=== PATIENT | male | born 1955 | race Caucasian/White ===

== ENCOUNTER 2019-03-03 11:06 | Outpatient (CLI) | payer OTHER, SELFPAY ==
--- NOTE | ~2019-03-03 | XR_ITS ---
XR lumbar spine 2-3V 03/03/2019 11:39 Indication: Right hip pain and sciatica Procedure: 3 views of the lumbar spine Comparison: MRI dated 11/02/2016 Findings: There are multiple calcifications overlying the kidneys which may represent stones or vascu lar calcification. There is disc narrowing at L2-3, L3-4, L4-5 and L5-S1. There is mild-moderate mult ilevel facet hypertrophy. There is extensive atherosclerosis in sacral foramen are symmetric. There i s a stent in the right common iliac artery. There are cholecystectomy clips. Impression: 1: Moderate lumbar spondylosis. 2: Multiple calcifications overlying the kidneys which may represent stones or vascular calcification . Reviewed, dictated and finalized at location A. BREAKER Impression: 1: Moderate lumbar spondylosis. 2: Multiple calcifications overlying the kidneys which may represent stones or vascular calcification.
--- NOTE | ~2019-03-03 | XR_ITS ---
XR hip RT 2V w AP pelvis 03/03/2019 11:40 Indication: Right hip pain and sciatica Procedure: AP pelvis and 3 views right hip Comparison: 03/04/2016 Findings: Pelvic rings are intact. Sacral foramen are symmetric. Extensive vascular calcifications in the pelvis. No significant joint space narrowing. No erosive changes. No fracture or traumatic malal ignment. Impression: 1: No significant bone or joint abnormality. Reviewed, dictated and finalized at location A. OR FRONT END ENGINEER Impression: 1: No significant bone or joint abnormality.
== END 2019-03-03 11:07 | disposition home or self-care (01) ==
LOC: ANHIMG 11:14
PROVIDERS: PCP Family Medicine; Visit Provider Family Medicine
DX: M25.551 Pain in right hip (principal); M54.30 Sciatica, unspecified side; M47.896 Other spondylosis, lumbar region
CPT/HCPCS: 72100; 73502; 73521

== ENCOUNTER 2020-05-29 20:11 | Inpatient (IN) | payer OTHER, SELFPAY ==
--- NOTE | ~2020-05-29 | XR_ITS ---
EXAMINATION: XR chest 2V DATE: 05/29/2020 20:39 INDICATION: Midsternal chest pain TECHNIQUE: PA and lateral views of the chest are obtained. COMPARISON: 06/21/2017 FINDINGS: The lungs are free of acute opacities. There is no pleural effusion or pneumothorax. The ca rdiomediastinal silhouette is normal. There is moderate thoracic spondylosis. Surgical clips in the r ight upper quadrant are likely from prior cholecystectomy. IMPRESSION: 1. No acute cardiopulmonary abnormality. Reviewed, dictated and finalized at location A. ROLL MACHINE OFFBEARER
--- NOTE | 2020-05-29 20:14 | ECG_ITS ---
Measurements Intervals [place] Rate: 67 P: 71 WV: 155 QRS: 34 QRSD: 101 T: 68 QT: 372 QTc: 395 Interpretive Statements SINUS RHYTHM FREQUENT ATRIAL PREMATURE COMPLEXES BASELINE ARTIFACT- I, II, V1-V2 ABNORMAL ECG Electronically Signed On 05-30-2020 6:53:25 SURPLUS PROPERTY DISPOSAL AGENT by Florentin Stephens D.O.
[2020-05-29 20:15] VITALS: BP 188/75; PULSE 63; RESP 16; TEMP 36.6; O2SAT 95
[2020-05-29 20:31] LABS: Basophils Percent Auto 0.4 % (0.2-1.2); Eosinophils Absolute Auto 0.2 K/mm3 (0-0.3); Eosinophils Percent Auto 2.4 % (0-4.4); Hematocrit 41.2 % (42.0-52.0); Hemoglobin 13.4 g/dL (14.0-18.0); Immature Granulocyte Absolute 0.02 K/mm3 (0.00-0.031); Immature Granulocyte Percent A 0.2 % (0-0.5); Lymphocytes Absolute Auto 1.77 K/mm3 (0.9-3.2); Mean Corpuscular HGB Conc 32.5 g/dl (32-36); Mean Corpuscular Hemoglobin 29.1 pg (26-34); Mean Corpuscular Volume 89.6 fl (80-100); Mean Platelet Volume 11.4 fl (7.4-10.4); Monocytes Absolute Auto 0.6 K/mm3 (0.1-0.6); Monocytes Percent Auto 7.2 % (2.6-8.5); Neutrophils Absolute Auto 5.8 K/mm3 (1.3-6.7); Neutrophils Percent Auto 68.8 % (45.5-73.1); Platelet Count Result 172 k/mm3 (150-375); Red Cell Distribution Width 14.6 % (11.5-14.5); White Blood Count 8.4 K/mm3 (4.5-10.0)
[2020-05-29 20:42] LABS: INR 0.9; Partial Thromboplastin Time 33.6 SECONDS (22.3-36.8); Prothrombin Time 12.9 Seconds (11.1-14.7)
[2020-05-29 20:44] LABS: Anion Gap 7 mmol/L (8-16); Blood Urea Nitrogen 30 mg/dL (9-20); Calcium 9.4 mg/dL (8.4-10.2); Carbon Dioxide 32 mmol/L (22-30); Chloride 98 mmol/L (98-107); Estimated CRCL calculation 66 ml/min; Estimated Glomerular Filt Rate > 60; Glucose 144 mg/dL (75-110); Potassium 4.5 mmol/L (3.4-5.0); Sodium 137 mmol/L (137-145)
[2020-05-29 21:19] VITALS: BP 172/80; PULSE 64; RESP 18; TEMP 36.7; O2SAT 96
--- NOTE | 2020-05-29 21:31 | ED.CHESTPAIN ---
HPI - Chest Pain General Chief Complaint: Chest Pain Stated Complaint: CP Time Seen by Provider: 05/29/20 21:19 Source: patient Mode of arrival: ambulatory Limitations: no limitations History of Present Illness HPI narrative: Patient is a 64-year-old male complaining of chest pain, midsternal, tightness, 8 out of 10, radiating to his left arm that started 1 hour prior to arrival. Patient denies any shortness of breath, abdominal pain, nausea, vomiting, diaphoresis, fever or chills. Patient states that he has a stress test scheduled tomorrow morning at [facility]. Related Data Home Medications Medication Instructions Recorded Confirmed albuterol sulfate 2.5 mg INHALATION Q4H PRN 02/27/19 08/21/19 atorvastatin 80 mg tablet 80 mg PO DAILY 02/27/19 08/21/19 blood sugar diagnostic #10 each 02/27/19 08/21/19 clopidogrel 75 mg tablet 75 mg PO DAILY 02/27/19 08/21/19 coenzyme Q10 100 mg capsule 100 mg PO DAILY 02/27/19 08/21/19 cyanocobalamin (vitamin B-12) 1,000 mcg PO DAILY 02/27/19 08/21/19 1,000 mcg capsule ferrous sulfate 325 mg (65 mg 325 mg PO DAILY 02/27/19 08/21/19 iron) tablet fluticasone propionate 50 2 spray NASAL DAILY 02/27/19 08/21/19 mcg/actuation nasal spray,suspension levothyroxine 200 mcg tablet 200 mcg PO DAILY 02/27/19 08/21/19 levothyroxine 25 mcg tablet 25 mcg PO DAILY 02/27/19 08/21/19 magnesium oxide 400 mg (241.3 mg 400 mg PO DAILY 02/27/19 08/21/19 magnesium) tablet metformin 1,000 mg tablet 1,000 mg PO BID 02/27/19 08/21/19 metoprolol tartrate 50 mg tablet 50 mg PO DAILY 02/27/19 08/21/19 pantoprazole 40 mg tablet,delayed 40 mg PO QAM 02/27/19 08/21/19 release pregabalin 50 mg capsule 50 mg PO DAILY cap 02/27/19 08/21/19 sertraline 100 mg tablet 100 mg PO DAILY 02/27/19 08/21/19 sitagliptin 100 mg tablet 100 mg PO DAILY 02/27/19 08/21/19 testosterone 1 % (50 mg/5 gram) 1 packet TRANSDERM DAILY 02/27/19 08/21/19 transdermal gel packet triamcinolone acetonide 0.1 % 1 applic TOPICAL BID 02/27/19 08/21/19 topical cream vitamin B complex 1 tablet PO DAILY 02/27/19 08/21/19 glycopyrrolate 9 mcg-formoterol 2 puff INHALATION BID 08/21/19 08/21/19 4.8 mcg HFA aerosol inhaler Allergies Allergy/AdvReac Type Severity Reaction Status Date / Time Iodinated Contrast Media Allergy Unknown Rash Verified 05/29/20 20:21 iodine Allergy Unknown Rash Verified 05/29/20 20:21 Penicillins Allergy Unknown Rash Verified 05/29/20 20:21 Review of Systems Review of Systems: All systems reviewed & are unremarkable except as noted in HPI and below Constitutional: Constitutional: Denies body ache(s), Denies chills, Denies excessive sweating, Denies fatigue, Denies fever(s), Denies headache(s), Denies lethargy, Denies malaise, Denies weakness and Denies weight loss Eyes: Eyes: Denies blurry vision, Denies change in vision and Denies loss of vision ENT: Denies dizziness, Denies ear discharge, Denies headache(s), Denies lip swelling, Denies epistaxis, Denies nasal congestion, Denies neck pain, Denies throat swelling and Denies tongue swelling Cardiovascular: Cardiovascular: Denies diaphoresis, Denies rapid heart rate, Denies edema, Denies irregular heart rhythm, Denies lightheadedness, Denies palpitations, Denies dyspnea and Denies dyspnea on exertion Respiratory: Respiratory: Denies chest congestion, Denies cough, Denies hemoptysis, Denies dyspnea and Denies dyspnea on exertion Gastrointestinal: Gastrointestinal: Denies abdominal pain, Denies melena, Denies hematochezia, Denies diarrhea, Denies nausea, Denies vomiting and Denies hematemesis Musculoskeletal: Musculoskeletal: Denies abnormal gait, Denies deformity, Denies joint swelling, Denies limited range of motion, Denies neck pain and Denies numbness Neurologic: Denies Abnormal speech present, Denies abnormal gait, Denies confusion, Denies dizziness, Denies headache(s), Denies focal weakness, Denies loss of vision, Denies numbness, Denies Other visual disturbances, Bin
[2020-05-29] MEDS: ASPIRIN 81 MG CHEWABLE TABLET 324 MG PO (21:35)
[2020-05-29] MEDS: NITROGLYCERIN SL 0.4 MG TABLET (22:11)
[2020-05-29] MEDS: ENOXAPARIN 100 MG/ML SYRINGE SUB-Q (22:22)
--- NOTE | 2020-05-29 22:23 | PC.NURSE ---
chest pain relieved with one nitro
[2020-05-29 22:25] VITALS: BP 126/73; PULSE 76; RESP 18; O2SAT 99
[2020-05-29 23:26] VITALS: O2SAT 94
[2020-05-29 23:30] VITALS: BP 139/72; PULSE 67; RESP 18; TEMP 36.6; O2SAT 94; BMI 32.3
[2020-05-29 23:31] VITALS: BMI 32.3
--- NOTE | 2020-05-29 23:48 | ADMGEN ---
This patient, Tutu Greer, was admitted to IMU Room 203-01 at 2331 from the Emergency department. Patient/family oriented to hospital policies and general routines including ID bracelet, bed and alarms, visiting hours, pain management, procedures, bathroom and other care routines, personal items, smoking policy, room service/diet, and visiting hours. Information on how to activate the Rapid Response Team has been discussed. Patient/Family are encouraged to report perceived risks to care and to ask questions if they do not understand what they are told or what they should do.
[2020-05-30] VITALS (21 sets, daily range): BP systolic 115–167; BP diastolic 41–91; PULSE 62–92; RESP 14–24; TEMP 36.3–36.6; O2SAT 91–94
[2020-05-30] MEDS: LACTATED RINGERS 1,000 ML 125 ML IV CONT ×2 (02:44→10:51)
[2020-05-30] MEDS: LEVOTHYROXINE SODIUM 100 MCG TABLET 200 MCG PO (06:09)
--- NOTE | 2020-05-30 08:00 | ECG_ITS ---
Measurements Intervals [place] Rate: 68 P: 54 MD: 160 QRS: 7 QRSD: 112 T: 52 QT: 425 QTc: 455 Interpretive Statements SINUS RHYTHM ATRIAL PREMATURE COMPLEXES INTRAVENTRICULAR CONDUCTION DELAY DELAYED PRECORDIAL R/S TRANSITION T WAVE ABNORMALITY IN ANTERIOR LEADS- CONSIDER ISCHEMIA BASELINE ARTIFACT- I, III ABNORMAL ECG Electronically Signed On 05-30-2020 9:16:09 SHOE PLANNER by Florentin Stephens D.O.
[2020-05-30] MEDS: ROSUVASTATIN 10 MG TABLET 40 MG PO (08:11)
[2020-05-30] MEDS: ASPIRIN 81 MG CHEWABLE TABLET PO (08:11)
[2020-05-30] MEDS: METOPROLOL TARTRATE 50 MG TAB PO (08:12)
[2020-05-30] MEDS: lisinopriL 20 MG TABLET PO (08:12)
[2020-05-30] MEDS: CLOPIDOGREL BISULFATE 75 MG TABLET PO (08:12)
[2020-05-30] MEDS: FLUTICASONE PROPIONATE 0.05% NA SPR 16 GM BTL (*BKC) 2 SPRAY NASAL (08:13)
[2020-05-30] MEDS: FERROUS SULFATE 324 MG TABLET PO (08:13)
[2020-05-30] MEDS: SERTRALINE HCL 50 MG TABLET 100 MG PO (08:13)
[2020-05-30] MEDS: PANTOPRAZOLE 40 MG TABLET PO (08:13)
[2020-05-30] MEDS: CYANOCOBALAMIN 1,000 MCG TABLET 1000 MCG PO (08:13)
[2020-05-30] MEDS: methylPREDNISolone SOD SUCC 125 MG VIAL IV PUSH (10:52)
--- NOTE | 2020-05-30 11:21 | PM.IMHP ---
H&P: HPI History of Present Illness Date/Time: 05/30/20 11:21 Chief Complaint: Chest pain Narrative: Tutu Greer is a 64 year old male who was admitted to our service last night after being seen in the emergency room with chest pain. The patient is unknown to me prior to this visit this morning. He is known to have significant vascular disease in the lower extremities as well as in the carotids. He also was known to have coronary artery disease which has been treated medically. The patient states that he was in his usual state of health when last evening he started to notice some chest pain with which is a dull retrosternal heavy like sensation radiating into the left shoulder and into the left arm. The discomfort of course caused him to be concerned and he very quickly informed his about it and was brought to the emergency room for evaluation. In the emergency department his electrocardiogram looked benign. He had a negative troponin sample he was given aspirin and nitrates and a Lovenox injection after which his pain resolved. He has been up in IMU since then and he has serial troponin levels which have become clearly abnormal with a troponin I believe up to about 13 his electrocardiogram in follow-up does show precordial ST and T-wave abnormalities it appears the patient therefore has had an anterior non ST elevation AL. He is comfortable at this time and denies any complaints. He states he is known to have arterial disease in both lower extremities and has had percutaneous revascularization at [facility] a number of years ago. Prior to that procedure he states he had a cardiac angiogram at [facility] at which she was told of modest disease which is being treated medically. 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 He does report the history of an allergy to IV contrast which has resulted in a rash in the past. Review of Systems Constitutional: Constitutional: Reports no additional constitutional complaints Eyes: Eyes: Reports no additional eye complaints ENT: Reports system reviewed and no additional complaints, except as documented Cardiovascular: Cardiovascular: Reports as per HPI Respiratory: Respiratory: Reports no additional respiratory complaints Gastrointestinal: Gastrointestinal: Reports no additional gastrointestinal complaints Musculoskeletal: Musculoskeletal: Reports no additional musculoskeletal complaints Integumentary/Breasts: Skin/Breast: Reports system reviewed and no additional complaints, except as docu Neurologic: Reports system reviewed and no additional complaints, except as documented [facility] Past Medical History Medical History Anemia Anxiety Arthritis CAD (coronary artery disease) Cataract COPD (chronic obstructive pulmonary disease) Depression Diabetes Diverticulitis HTN (hypertension) Hyperlipidemia Hypothyroidism Left carotid artery occlusion Lung cancer PVD (peripheral vascular disease) Sleep apnea Spinal stenosis Surgical History Surgical History H/O carotid endarterectomy History of bowel resection History of cardiac cath Hx laparoscopic cholecystectomy Family History Family History Father Family history of malignant neoplasm Family history of lung cancer Patient's father is Mother Hypertension Diabetes mellitus Family history of arthritis Sibling Patient's brother is in good health Other Family history of allergic disorder Social History Social History Smoking packs per day: 1 Smoking cigarettes per day: 20.0 Years smoked: 39 Smoking pack-years: 39.00 Smok
--- NOTE | 2020-05-30 13:08 | WPDMODSED ---
Moderate Sedation Note-Pt Data Patient Data Diagnosis: Acute coronary syndrome / non ST elevation [place] Present Complaint: chest pain Procedure to be performed/Plan: left heart catheterization Allergies Allergy/AdvReac Type Severity Reaction Status Date / Time Iodinated Contrast Media Allergy Unknown Rash Verified 05/29/20 20:21 iodine Allergy Unknown Rash Verified 05/29/20 20:21 Penicillins Allergy Unknown Rash Verified 05/29/20 20:21 shellfish derived Allergy Rash Verified 05/30/20 00:50 Home Medications Medication Instructions Recorded Confirmed Type blood sugar diagnostic #10 each 02/27/19 05/30/20 History clopidogrel 75 mg tablet 75 mg PO DAILY 02/27/19 05/30/20 History cyanocobalamin (vitamin B-12) 1,000 mcg PO DAILY 02/27/19 05/30/20 History 1,000 mcg capsule ferrous sulfate 325 mg (65 mg 325 mg PO DAILY 02/27/19 05/30/20 History iron) tablet fluticasone propionate 50 2 spray NASAL DAILY 02/27/19 05/30/20 History mcg/actuation nasal spray,suspension levothyroxine 200 mcg tablet 200 mcg PO DAILY 02/27/19 05/30/20 History metformin 1,000 mg tablet 1,000 mg PO BID 02/27/19 05/30/20 History metoprolol tartrate 50 mg tablet 50 mg PO DAILY 02/27/19 05/30/20 History pantoprazole 40 mg tablet,delayed 40 mg PO QAM 02/27/19 05/30/20 History release sertraline 100 mg tablet 100 mg PO DAILY 02/27/19 05/30/20 History testosterone 1 % (50 mg/5 gram) 1 packet TRANSDERM DAILY 02/27/19 05/30/20 History transdermal gel packet vitamin B complex 1 tablet PO DAILY 02/27/19 05/30/20 History lisinopril 20 1 tablet PO DAILY #90 tablet 03/05/19 05/30/20 Rx mg-hydrochlorothiazide 25 mg tablet Current Medications: Active Medications Aspirin (Aspirin 81 Mg Chewable Tablet) 81 mg PO DAILY@0800 [facility] Last Admin: 05/30/20 08:11 Dose: 81 mg Documented by: Clopidogrel Bisulfate (Clopidogrel Bisulfate 75 Mg Tablet) 75 mg PO DAILY [facility] Last Admin: 05/30/20 08:12 Dose: 75 mg Documented by: Cyanocobalamin (Cyanocobalamin 1,000 Mcg Tablet) 1,000 mcg PO DAILY [facility] Last Admin: 05/30/20 08:13 Dose: 1,000 mcg Documented by: Ferrous Sulfate (Ferrous Sulfate 324 Mg Tablet) 324 mg PO DAILY@0800 [facility] Last Admin: 05/30/20 08:13 Dose: 324 mg Documented by: Fluticasone Propionate (Fluticasone Propionate 0.05% Na Spr 16 Gm Btl (*Bkc)) 2 spray NASAL DAILY [facility] Last Admin: 05/30/20 08:13 Dose: 2 spray Documented by: Hydrochlorothiazide (Hydrochlorothiazide 25 Mg Tablet) [facility] Admin: 05/30/20 11:29 Dose: Not Given Documented by: Lactated Ringer's (Lr - Lactated Ringers Iv) 1,000 mls @ 125 mls/hr IV CONT .Q8H [facility] Last Admin: 05/30/20 10:51 Dose: 125 mls/hr Documented by: Levothyroxine Sodium (Levothyroxine Sodium 100 Mcg Tablet) 200 mcg PO DAILY@0630 [facility] Last Admin: 05/30/20 06:09 Dose: 200 mcg Documented by: Lisinopril (Lisinopril 20 Mg Tablet) [facility] [place] Admin: 05/30/20 08:12 Dose: 20 mg Documented by: Metoprolol Tartrate (Metoprolol Tartrate 50 Mg Tab) 50 mg PO DAILY [facility] Last Admin: 05/30/20 08:12 Dose: 50 mg Documented by: Pantoprazole Sodium (Pantoprazole 40 Mg Tablet) [address] [facility] Last Admin: 05/30/20 08:13 Dose: 40 mg Documented by: Rosuvastatin Calcium (Rosuvastatin 10 Mg Tablet) 40 mg PO DAILY@0800 [facility] Last Admin: 05/30/20 08:11 Dose: 40 mg Documented by: Sertraline HCl (Sertraline Hcl 50 Mg Tablet) 100 mg PO DAILY [facility] Last Admin: 05/30/20 08:13 Dose: 100 mg Documented by: Sedation/Anesthesia: No previous sedation/anesthesia problems (including family history). [facility] Past Medical History Medical History Anemia Anxiety Arthritis CAD (coronary artery disease) Cataract COPD (chronic obstructive pulmonary disease) Depression Diabetes Diverticulitis HTN (hypertension) Hyperlipidemia Hypothyroidism Left carotid artery occlusion Lung cancer PVD (peripheral vascular disease) Sleep office clerk routine
--- NOTE | 2020-05-30 14:06 | WPDCARDPROC ---
Cardiac Cath Procedure Note Date of procedure:: 05/30/20 Performing physician:: Quinn Machuca MD Indication:: acute coronary syndrome / non ST elevation MT Brief clinical history:: this is a 64-year-old man with known diffuse peripheral vascular disease but angiographically mild coronary disease in the past. He presented with an episode of ischemic chest pain, ECG the following changes of anterior non Q MT and significant troponin rise. Procedure Procedure performed:: Left ventriculography coronary angiography Sedation/Medication given:: fentanyl 50 mg Versed 2 mg case start time 1:30 p.m. case end time 2:00 p.m. sedation provided by Alanna Peters RN, trained observer Access site:: right femoral artery Estimated blood loss:: 20 cc Procedure note:: patient was brought to the cardiac catheterization lab in the postabsorptive state. Under fluoroscopic visualization I did not see any visible stent material in the right femoral artery. There was stent material higher up in the iliac vessel. The femoral artery was have however heavily calcified. 1% lidocaine was infiltrated in the femoral triangle and using the modified Seldinger technique the vessel was punctured and I used a Josesito wire to traverse the diseased femoral and iliac vessels into the central aorta. I then advanced a 5 Tajik vascular sheath which was used for vascular access. Initially I used a 5 Tajik angled pigtail catheter over the wooly wire advanced into the left ventricle to assess left-sided hemodynamics and left ventriculogram was injected in the MYERS projection. After this the pigtail catheter was changed over the standard 0.035 J-wire for a JR4 catheter. I was unable to engage the right coronary artery successfully with this vessel or with the no Torque catheter. I then used the 5 Tajik FL4 catheter to engage and inject the left coronary artery in multiple projections. After this I attempted once again to engage and inject the right coronary artery using a 5 Tajik AR modified catheter. Following this the cineangiograms were reviewed and the case was terminated. The patient was taken to the holding area for manual sheath removal. Procedure was well tolerated there were no apparent complications. He left the laborer rags with no evidence of a groin hematoma. Findings:: Hemodynamics: Central aortic pressure is 124 over 60 left ventricle 1 28 over to end-diastolic pressure of 10. No significant gradient was noted across the aortic valve on pullback. Left ventricle: The LV appears to be normal in size the mid anterior wall to apical anterior segment is significantly hypodynamic but not akinetic the ejection fraction is visually estimated to be 40-45%. The left main coronary artery is moderate to large in caliber and is calcified. There is about 70% stenosis in the distal aspect of the left main. The left anterior descending is a large to moderate caliber artery extending down to around the apex. The ostium of the LAD has mild stenosis extending from the left main disease described above. In the proximal half of the LAD there is heavy diffuse calcification with [id number] lesions but no high-grade stenosis. There is about 80% stenosis in the midportion of the LAD distal to all of this heavy calcification. Circumflex is a large caliber vessel which appears to be dominant to the posterior circulation. The circumflex has a high-grade proximal stenosis of 99%. There appears to be a large proximal OM branch prior to this lesion at that vessel does not appear to be significantly disease. In another view there appears to be a 2nd bifurcating OM branch that is occluded and collateralized. The distal circumflex trunk prior to the left PDA has diffuse 80-90% stenosis. Conclusion:: 1. Severe coronary artery disease with what appears to be left dominant circulation and significant disease in the distal left main, subtotal stenosis of large proximal c
[2020-05-30] MEDS: SODIUM CHLORIDE 0.9% IV 1,000 ML 125 ML IV CONT (17:42)
[2020-05-30] MEDS: ACETAMINOPHEN 325 MG TABLET 650 MG PO (17:43)
[2020-05-31] VITALS: BP 143/73; PULSE 71; PULSE 75; RESP 16; TEMP 36.2; O2SAT 93
[2020-05-31 02:00] VITALS: PULSE 73
[2020-05-31 04:00] VITALS: BP 134/71; PULSE 65; PULSE 85; RESP 16; TEMP 36.2; O2SAT 93
[2020-05-31 05:00] VITALS: PULSE 78
--- NOTE | 2020-05-31 05:09 | PC.NURSE ---
0500- Report given to Anisha METCALF. Patient will be transferred [place] [id number]. Patient aware and agreeable for transfer. Belongings confirmed and with patient.
--- NOTE | 2020-06-23 15:48 | PM.DS ---
DS: Admitting Diagnosis Admitting Diagnosis Admitting Diagnosis: Acute coronary syndrome DS: Discharge Diagnosis Discharge Diagnosis (1) Non-ST elevation (NSTEMI) myocardial infarction: Code(s): I21.4 - Non-ST elevation (NSTEMI) myocardial infarction Status: Acute DS: Summary Hospital Course Reason for hospitalization: Chest pain, acute coronary syndrome Hospital Course: This is a 64-year-old man without any previous history of significant coronary disease but with a known history of severe peripheral vascular disease. He entered the hospital with ischemic chest pain in accelerating fashion and was seen in the emergency department. Following admission there was a moderate rise in his troponin level prompting recommendation to perform an angiogram. The patient was brought to the cardiac catheterization lab and was found to have severe multivessel coronary disease. The right coronary artery appears to have been a small non dominant vessel which is totally occluded. The patient was found to have high-grade stenosis in the distal left main coronary artery, proximal and mid LAD and ostial circumflex. An occluded marginal branch was also identified. Left ventricular function was moderately depressed ejection fraction was about 40%. With this anatomy surgical myocardial revascularization was recommended. As coronary bypass surgery is not available at [facility] he was transferred to [facility] in [place] for cardiothoracic surgery consultation and ultimately for revascularization. Status at Discharge Functional status at discharge: bed bound Overall status at discharge: patient is not back to baseline Time Spent with Patient Time attestation: Total time spent providing and/or coordinating discharge services: Time spent: Greater than 30 minutes Exam Const: General: comfortable and no acute distress Other: Well-developed well-nourished white male no distress having intermittent chest pain at the time of admission HENMT: Mouth: Yes moist mucous membranes Eyes: Sclera: sclerae normal Pupils: Equal, round and reactive pupils present Neck: Neck: supple and no JVD Other: No carotid bruits are audible Resp: Effort & Inspection: normal respiratory effort Auscultation: diminished lung sounds Cardio: Rate: regular rate Rhythm: regular rhythm Other: PMI difficult to palpate S4 is noted no murmur GI: GI Palp: Yes Soft to palpation Auscultation: normal bowel sounds Skin: General skin exam: normal color Neuro: Other: Normal mentation/cognition Extrem: Other: No pitting edema pulses are diminished below the femoral triangles bilaterally Discharge Plan Discharge Attending physician on discharge: Quinn Machuca Consulting providers: Dante Ramos ; Florentin Stephens Discharging Clinician: Quinn Machuca Anticipated Discharge Date/Time: 05/30/20 15:52 Patient Disposition: Acute Care Hospital Activity: other - see discharge instructions Diet: NPO Patient Instructions: Electronic Cigarettes and Your Health (GEN) Discharge Medications: Continued fluticasone propionate 50 mcg/actuation spray,suspension 2 spray NASAL DAILY RF: 0 pantoprazole [Protonix] 40 mg tablet,delayed release (DR/EC) 40 mg PO QAM RF: 0 ferrous sulfate [FeroSul] 325 mg (65 mg iron) tablet 325 mg PO DAILY RF: 0 testosterone [AndroGel] 1 % (50 mg/5 gram) gel in packet 1 packet TRANSDERM DAILY RF: 0 sertraline [Zoloft] 100 mg tablet 100 mg PO DAILY RF: 0 levothyroxine 200 mcg tablet 200 mcg PO DAILY RF: 0 metoprolol tartrate 50 mg tablet 50 mg PO DAILY RF: 0 cyanocobalamin (vitamin B-12) 1,000 mcg capsule 1,000 mcg PO DAILY RF: 0 lisinopril-hydrochlorothiazide 20-25 mg tablet 1 tablet PO DAILY Qty: 90 RF: 1 Discontinued vitamin B complex Tablet 1 tablet PO DAILY RF: 0 (DME) OneTouch Ultra Blue Test Strip Strip See Rx Instructions .ROUTE .MED
== END 2020-05-31 05:00 | disposition short-term general hospital (02) | DRG 282 ==
LOC: ANHED 22:37 → ANHIMU 23:30
PROVIDERS: Emergency Medicine; Admitting Provider Internal Medicine Cardiovascular Disease; Emergency Provider Emergency Medicine; PCP Student in an Organized Health Care Education/Training Program; Visit Provider Specialist
PROC: 4A023N7 Measurement of Cardiac Sampling and Pressure, Left Heart, Percutaneous Approach (ICD-10-PCS; CPT 93452; principal; 2020-05-30 13:00)
DX: I21.4 Non-ST elevation (NSTEMI) myocardial infarction (principal); I25.10 Atherosclerotic heart disease of native coronary artery without angina pectoris; D64.9 Anemia, unspecified; F41.8 Other specified anxiety disorders; M19.90 Unspecified osteoarthritis, unspecified site; J44.9 Chronic obstructive pulmonary disease, unspecified; E78.5 Hyperlipidemia, unspecified; G47.30 Sleep apnea, unspecified; I73.9 Peripheral vascular disease, unspecified; E11.51 Type 2 diabetes mellitus with diabetic peripheral angiopathy without gangrene; E03.9 Hypothyroidism, unspecified; I10 Essential (primary) hypertension; M48.00 Spinal stenosis, site unspecified; Z87.891 Personal history of nicotine dependence; Z90.49 Acquired absence of other specified parts of digestive tract; Z85.118 Personal history of other malignant neoplasm of bronchus and lung
CPT/HCPCS: 36415; 71046; 80048; 84484; 85025; 85610; 85730; 93005; 93458; 96360; 96361; 96372; 99291; A9270; C1769; C1887; C1894; G0378; J1644; J1650; J2250; J2930; J3010; J7030; J7040; J7120

== ENCOUNTER 2022-04-24 11:11 | Inpatient (IN) | payer OTHER, SELFPAY ==
[2022-04-24] VITALS (20 sets, daily range): BP systolic 96–197; BP diastolic 54–92; PULSE 62–128; RESP 18–39; TEMP 36.6–37.7; O2SAT 85–99; BMI 31.5
--- NOTE | ~2022-04-24 | XR_ITS ---
EXAMINATION: XR chest 1V portable INDICATION: Shortness of breath TECHNIQUE: Portable AP chest at 0909 hours COMPARISON: 04/24/2022 FINDINGS: There are persistent airspace opacities of the right upper lobe. Airspace opacities have de veloped in the left lung base. No pleural effusion or pneumothorax. Median sternotomy wires and media stinal surgical clips are seen, likely from prior coronary artery bypass grafting. The cardiomediasti nal silhouette is normal. Surgical clips are noted in the left neck. IMPRESSION: 1. Persistent right upper lobe airspace opacities, consistent with pneumonia. 2. Minimal left basilar airspace opacities, consistent with atelectasis versus pneumonia. Reviewed, dictated and finalized at location B. [employer]OR[employer] UNITS SUPERVISOR
--- NOTE | ~2022-04-24 | XR_ITS ---
XR chest 1V portable 04/24/2022 11:39 Indication: Cough and shortness of breath. COPD. Procedure: AP portable chest Comparison: Comparison to multiple prior studies sequentially, with oldest reviewed study dated 04/08. Findings: Status post median sternotomy for CABG. Heart size normal. Bibasilar airspace disease. No s ignificant effusion or pneumothorax. No acute osseous abnormality. Impression: 1: Bibasilar airspace disease may represent pneumonia or edema. Reviewed, dictated and finalized at location A. [employer]OR COFFEE Impression: 1: Bibasilar airspace disease may represent pneumonia or edema.
--- NOTE | ~2022-04-24 | CT_ITS ---
EXAMINATION:CT diagnostic chest wo con DATE: 04/24/2022 14:25 INDICATION: Dyspnea. TECHNIQUE: Computed tomography (CT) of the chest was performed without intravenous contrast. Automate d exposure control and iterative reconstruction technique were employed. The dose-length product (DLP ) was 390.10 mGy-cm. COMPARISON: Chest CT 03/18/2017, 04/08/17 FINDINGS: There is mild emphysema. There are changes of wedge resection in right lung lower lobe. The re are airspace opacities with air bronchograms in anterior segment right upper lobe. There is mild a telectasis bilaterally. No pleural effusion. The heart size is normal. There are coronary artery calc ifications. There are changes of coronary artery bypass grafting. No pericardial effusion. There are changes of cholecystectomy. There is mild chronic anterior wedging of multiple vertebral bodies. Ther e is mild thoracic spondylosis. IMPRESSION: 1. Pneumonia involving anterior segment right upper lobe. 2. Mild emphysema. Reviewed, dictated and finalized at location A. [employer] EVALUATION OFFICER
--- NOTE | 2022-04-24 11:23 | ECG_ITS ---
Measurements Intervals [place] Rate: 112 P: 31 [place]: 167 QRS: -78 QRSD: 134 T: 62 QT: 286 QTc: 391 Interpretive Statements SINUS TACHYCARDIA LEFT AXIS DEVIATION RIGHT BUNDLE BRANCH BLOCK INFERIOR INFARCT, AGE INDETERMINATE ABNORMAL ECG COMPARED TO ECG 05/30/2020 09:14:06 SINUS TACHYCARDIA NOW PRESENT RIGHT BUNDLE-BRANCH BLOCK NOW PRESENT INFERIOR INFARCT NOW PRESENT Electronically Signed On 04-24-2022 13:20:21 FRAME EXPANDER by Florentin Stephens D.O.
--- NOTE | 2022-04-24 11:29 | ED.GENADULT ---
HPI - General Adult General Chief complaint: Upper Respiratory Infection Stated complaint: flu like symptoms x days, flor/n/v/dizzy/weakness Time Seen by Provider: 04/24/22 11:15 Source: family and RN notes reviewed History of Present Illness HPI narrative: Patient presents emergency department from home for generalized weakness. Patient states has been feeling ill for the past 4 days states has had a cough this been nonproductive as well as subjective fever weakness and nausea he denies any chest pain states he has been feeling short of breath with the cough he denies any vomiting or diarrhea states he last took Tylenol between 6 and 7 AM this morning . On EMS arrival patient was noted to be hypoxic in the mid 80s and placed on 2 L nasal cannula per the patient's the patient had a temperature of 100.7 this morning Related Data Home Medications Medication Instructions Recorded Confirmed fluticasone propionate 50 2 spray intranasal DAILY 02/27/19 04/24/22 mcg/actuation nasal spray,suspension metoprolol tartrate 50 mg tablet 50 mg PO DAILY 02/27/19 04/24/22 sertraline 100 mg tablet (Zoloft) 100 mg PO DAILY 02/27/19 04/24/22 acetaminophen 325 mg capsule 325 mg PO Q6H PRN pain 02/17/22 04/24/22 albuterol sulfate 2.5 mg/3 mL 2.5 mg inhalation Q4-6H PRN Pain 02/17/22 04/24/22 (0.083 %) solution for nebulization albuterol sulfate 90 mcg/actuation 1 puff inhalation Q4H PRN 02/17/22 04/24/22 aerosol inhaler Shortness Of Breath amlodipine 5 mg tablet 5 mg PO DAILY 02/17/22 04/24/22 clopidogrel 75 mg tablet 75 mg PO DAILY 02/17/22 04/24/22 fluticasone 250 mcg-salmeterol 50 1 inh inhalation BID 02/17/22 04/24/22 mcg/dose blistr powdr for inhalation (Raffaele Inhub) levothyroxine 175 mcg capsule 175 mcg PO DAILY 02/17/22 04/24/22 lisinopril 40 mg tablet 40 mg PO DAILY 02/17/22 04/24/22 furosemide 20 mg tablet 20 mg PO DAILY PRN edema 04/24/22 04/24/22 Allergies Allergy/AdvReac Type Severity Reaction Status Date / Time Iodinated Contrast Media Allergy Unknown Rash Verified 02/17/22 10:41 iodine Allergy Unknown Rash Verified 02/17/22 10:41 Penicillins Allergy Unknown Rash Verified 02/17/22 10:41 shellfish derived Allergy Rash Verified 02/17/22 10:41 Review of Systems Review of Systems: Gen.: Reports subjective fevers denies chills ENT: Denies congestion Respiratory: See HPI CV: Denies chest pain or palpitations GI: Denies abdominal pain emesis or diarrhea reports nausea Musculoskeletal: Denies back pain or muscle pain Neuro: Reports weakness Skin: Denies rash Except as documented, all other systems reviewed and negative [facility] Past Medical History Medical History (Updated 04/24/22 @ 15:46 by David Velazquez DO) Anemia Anxiety Arthritis Atherosclerotic heart disease of [place] coronary artery with other forms of angina pectoris CAD (coronary artery disease) Cataract Cerebrovascular disease COPD (chronic obstructive pulmonary disease) Depression Diabetes Diverticulitis Enlarged prostate without lower urinary tract symptoms (luts) Gastro-esophageal reflux disease without esophagitis HTN (hypertension) Hyperlipidemia Hypothyroidism Left carotid artery occlusion Lumbar radiculopathy Lung cancer Non-small cell cancer of right lung Non-ST elevation (NSTEMI) myocardial infarction Other vitamin B12 deficiency anemias PVD (peripheral vascular disease) Sciatica Sciatica Sleep apnea Spinal stenosis Testosterone deficiency Surgical History Surgical History H/O carotid endarterectomy History of bowel resection History of cardiac cath Hx laparoscopic cholecystectomy Family History Family History Father Family history of malignant neoplasm Family history of lung cancer Patient's father is Mother Hypertension Diabetes mellitus Family history of arthritis Sibling Patient's
[2022-04-24 11:42] LABS: Basophils Percent Auto 0.2 % (0.2-1.2); Eosinophils Absolute Auto 0.1 K/mm3 (0-0.3); Eosinophils Percent Auto 0.5 % (0-4.4); Hematocrit 46.7 % (42.0-52.0); Immature Granulocyte Absolute 0.05 K/mm3 (0.00-0.031); Immature Granulocyte Percent A 0.4 % (0-0.5); Lymphocytes Absolute Auto 1.01 K/mm3 (0.9-3.2); Lymphocytes Percent Auto 8.4 % (18.3-44.2); Mean Corpuscular HGB Conc 32.1 g/dl (32-36); Mean Corpuscular Hemoglobin 29.6 pg (26-34); Mean Corpuscular Volume 92.3 fl (80-100); Mean Platelet Volume 11.8 fl (7.4-10.4); Monocytes Absolute Auto 0.7 K/mm3 (0.1-0.6); Monocytes Percent Auto 5.6 % (2.6-8.5); Neutrophils Absolute Auto 10.2 K/mm3 (1.3-6.7); Neutrophils Percent Auto 84.9 % (45.5-73.1); Platelet Count Result 166 k/mm3 (150-375); Red Blood Count 5.06 M/mm3 (4.6-6.20); Red Cell Distribution Width 14.2 % (11.5-14.5)
[2022-04-24 11:53] LABS: Alanine Aminotransferase 28 U/L (6-50); Albumin Level 4.5 g/dL (3.5-5.1); Alkaline Phosphatase 109 U/L (38-126); Anion Gap 9 mmol/L (8-16); Aspartate Amino Transferase 39 U/L (17-59); Bilirubin,Total 0.8 mg/dL (0.2-1.3); Blood Urea Nitrogen 20 mg/dL (9-20); Calcium 9.2 mg/dL (8.4-10.2); Carbon Dioxide 32 mmol/L (22-30); Chloride 98 mmol/L (98-107); Estimated Glomerular Filt Rate > 60; Glucose 174 mg/dL (65-110); Potassium 4.3 mmol/L (3.4-5.0); Sodium 139 mmol/L (137-145)
[2022-04-24 11:54] LABS: INR 1.1; Prothrombin Time 13.3 Seconds (11.1-14.7)
[2022-04-24 11:55] LABS: Partial Thromboplastin Time 31.5 SECONDS (22.3-36.8)
[2022-04-24 12:05] LABS: NT Pro B Type Natriuretic Pept 1330 pg/mL (19.9-100); Troponin I < 0.012 ng/mL (0.000-0.034)
[2022-04-24 12:07] LABS: Lactic Acid Reflex 1.8 mmol/L (0.7-2.0)
[2022-04-24 12:17] LABS: Influenza A QL RT-PCR Negative (Negative); Influenza B QL RT-PCR Negative (Negative); RSV RNA, RT-PCR Negative (Negative); SARS-CoV-2 RNA PCR Negative
[2022-04-24] MEDS: FAMOTIDINE 20 MG/2 ML VIAL IV PUSH (13:21)
[2022-04-24] MEDS: IBUPROFEN 600 MG TABLET PO (13:21)
[2022-04-24] MEDS: SODIUM CHLORIDE 0.9% IV 1,000 ML 999 ML IV CONT (13:22)
[2022-04-24 13:40] LABS: Appearance Urine Clear (Clear); Bilirubin Urine Negative (Negative); Blood Urine Trace-intact (Negative); Color Urine Yellow (Yellow); Glucose Urine UA Negative (Negative); Ketones Urine Negative (Negative); Leukocyte Esterase Ur Negative LEU/UL (Negative); Nitrate Urine Negative (Negative); Protein Urine 3+ mg/dL (Negative); Specific Grav Ur 1.025 (1.001-1.035); pH Urine 5.5 (5.0-9.0)
[2022-04-24 13:46] LABS: Mucus Urine Rare /lpf; RBC Urine 0-2 /hpf (0-2); WBC Urine 0-3 /hpf
[2022-04-24 13:50] LABS: Add Urine Microscopic? YES
--- NOTE | 2022-04-24 13:53 | ECG_ITS ---
Measurements Intervals [place] Rate: 115 P: 2 AR: 157 QRS: -75 QRSD: 133 T: 71 QT: 343 QTc: 476 Interpretive Statements SINUS TACHYCARDIA VENTRICULAR PREMATURE COMPLEX LEFT AXIS DEVIATION RIGHT BUNDLE BRANCH BLOCK CONSIDER INFERIOR INFARCT, AGE INDETERMINATE ABNORMAL ECG COMPARED TO ECG 04/24/2022 11:25:22 NO SIGNIFICANT CHANGES Electronically Signed On 04-24-2022 19:19:17 SECOND VP HR ASSESSMENT by Florentin Stephens D.O.
--- NOTE | 2022-04-24 15:07 | PM.IMHP ---
H&P: HPI History of Present Illness Date/Time: 04/24/22 15:07 Chief Complaint: Shortness of breath, generalized weakness Narrative: Patient is 58-year-old male with past medical history of COPD, emphysema, anemia, CAD with history of CABG who presented to the ED with complaints of generalized weakness, cough, shortness of breath. Patient stated this all started about 4 days ago. This morning at about 530 and was having a coughing attack. He did state that he was able to get something up and CODI 1 white phlegm. He stated that he went was able to take some of his medications however as the morning progressed he was having further issues and was unable to stand was shaking. he did say that he tried to take some of his medications however he was unable to take some of them due to the nausea. His did take his temperature his temperature was a 100.7?. his also did a scan of his SpO2 throughout the night because he wears a monitor and his saturations did not drop past 92. However when EMS did get their it was noted that he was 80% on room air. He also states that he has been more swollen lately in the bilateral lower extremities. His did say that he try to eat a little something however his appetite has been very poor. He has been trying to take Tylenol cold and flu has been helping some but not lot. He denies any chest pain, vomiting, sweats, fevers, palpitations, falls, syncope. patient did state that he has been lightheaded and dizzy and has been having some chills with headache. Patient denies any urinary dysfunction including urgency, frequency, or retention. Currently patient is comfortable on 2 L nasal cannula. He does get a little winded upon communication that recurs quickly. Patient does have a notable sinus tach. CT of the chest did show right upper lobe pneumonia. Patient has been also having low-grade fever. Patient is being admitted to the hospitalist service under observation Review of Systems Review of Systems: All systems reviewed & are unremarkable except as noted in HPI and below [facility] Past Medical History Medical History Anemia Anxiety Arthritis Atherosclerotic heart disease of [place] coronary artery with other forms of angina pectoris CAD (coronary artery disease) Cataract Cerebrovascular disease Community acquired pneumonia COPD (chronic obstructive pulmonary disease) Depression Diabetes Diverticulitis Enlarged prostate without lower urinary tract symptoms (luts) Gastro-esophageal reflux disease without esophagitis HTN (hypertension) Hyperlipidemia Hypothyroidism Left carotid artery occlusion Lumbar radiculopathy Non-small cell cancer of right lung Non-ST elevation (NSTEMI) myocardial infarction Other vitamin B12 deficiency anemias PVD (peripheral vascular disease) Sciatica Sepsis Sleep apnea Spinal stenosis Testosterone deficiency Surgical History Surgical History H/O carotid endarterectomy History of bowel resection History of cardiac cath Hx laparoscopic cholecystectomy Family History Family History Father Family history of malignant neoplasm Family history of lung cancer Patient's father is Mother Hypertension Diabetes mellitus Family history of arthritis Sibling Patient's brother is in good health Other Family history of allergic disorder Social History Social History (Updated 04/24/22 @ 16:02 by MAXIME Guerra) Social History: patient lives the his Tracy who will be his surrogate they do have 1 dog that is a beagle cattle dog mix. They have had 2 kids. Patient wishes to be a full code at this time Smoking packs per day: 1 Smoking cigarettes per day: 20.0 Years smoked: 39 Smoking pack-years: 39.00 Smoking status: Former smoker Tobacco type:
[2022-04-24] MEDS: lisinopriL 20 MG TABLET 40 MG PO (16:48)
[2022-04-24] MEDS: CLOPIDOGREL BISULFATE 75 MG TABLET PO (16:48)
[2022-04-24] MEDS: SERTRALINE HCL 50 MG TABLET 100 MG PO (16:48)
[2022-04-24] MEDS: amLODIPine BESYLATE 5 MG TABLET PO (16:48)
[2022-04-24] MEDS: METOPROLOL TARTRATE INJ 5 MG/5 ML VIAL 2.5 MG IV PUSH (16:48)
[2022-04-24] MEDS: FLUTICASONE PROPIONATE 0.05% NA SPR 16 GM BTL (*BKC) 2 SPRAY NASAL (16:49)
[2022-04-24 17:07] LABS: Glucose Point of Care 156 mg/dl (65-105)
[2022-04-24 17:19] LABS: Troponin I 0.026 ng/mL (0.000-0.034)
--- NOTE | 2022-04-24 18:13 | PC.NURSE ---
Pt arrived to unit ~1600. Oriented pt and family to room, and call light system. Educated pt to not get out of bed by himself. Pt verbalized understanding. Bed is in lowest and locked position with alarm on.
[2022-04-24 20:07] LABS: Troponin I 0.034 ng/mL (0.000-0.034)
[2022-04-24] MEDS: ACETAMINOPHEN 500 MG TABLET 1000 MG PO (20:07)
[2022-04-24] MEDS: METOPROLOL TARTRATE 50 MG TAB PO (20:09)
[2022-04-24 21:13] LABS: Glucose Point of Care 129 mg/dl (65-105)
[2022-04-24] MEDS: ALBUTEROL SULFATE NEB 2.5 MG/3 ML INH 1.25 MG INHALATION (21:15)
[2022-04-24] MEDS: SODIUM CHLORIDE 0.9% IV 250 ML 100 ML IV CONT (21:56)
[2022-04-25] VITALS (20 sets, daily range): BP systolic 107–130; BP diastolic 50–74; PULSE 62–97; RESP 16–20; TEMP 36.1–37.4; O2SAT 91–99
[2022-04-25] MEDS: ALBUTEROL SULFATE NEB 2.5 MG/3 ML INH 1.25 MG INHALATION ×4 (02:13→19:50)
[2022-04-25 04:17] LABS: Basophils Absolute Auto 0.1 K/mm3 (0.0-0.1); Basophils Percent Auto 0.5 % (0.2-1.2); Hematocrit 41.2 % (42.0-52.0); Hemoglobin 13.3 g/dL (14.0-18.0); Immature Granulocyte Absolute 0.32 K/mm3 (0.00-0.031); Immature Granulocyte Percent A 1.4 % (0-0.5); Lymphocytes Absolute Auto 1.19 K/mm3 (0.9-3.2); Mean Corpuscular HGB Conc 32.3 g/dl (32-36); Mean Corpuscular Hemoglobin 30.2 pg (26-34); Mean Corpuscular Volume 93.6 fl (80-100); Mean Platelet Volume 11.4 fl (7.4-10.4); Monocytes Absolute Auto 1.4 K/mm3 (0.1-0.6); Monocytes Percent Auto 5.9 % (2.6-8.5); Neutrophils Absolute Auto 20.6 K/mm3 (1.3-6.7); Neutrophils Percent Auto 87.2 % (45.5-73.1); Platelet Count Result 152 k/mm3 (150-375); Red Cell Distribution Width 14.3 % (11.5-14.5); White Blood Count 23.6 K/mm3 (4.5-10.0)
[2022-04-25 04:27] LABS: Alanine Aminotransferase 26 U/L (6-50); Albumin Level 4.5 g/dL (3.5-5.1); Alkaline Phosphatase 91 U/L (38-126); Anion Gap 7 mmol/L (8-16); Aspartate Amino Transferase 32 U/L (17-59); Blood Urea Nitrogen 30 mg/dL (9-20); Calcium 8.6 mg/dL (8.4-10.2); Carbon Dioxide 34 mmol/L (22-30); Chloride 93 mmol/L (98-107); Estimated CRCL calculation 54 ml/min; Estimated Glomerular Filt Rate 55; Glucose 127 mg/dL (65-110); Sodium 134 mmol/L (137-145)
[2022-04-25 04:33] LABS: Hemoglobin A1C 6.2 % (<5.7)
[2022-04-25] MEDS: LEVOTHYROXINE SODIUM 150 MCG TABLET PO (06:11)
[2022-04-25 08:03] LABS: Glucose Point of Care 122 mg/dl (65-105)
--- NOTE | 2022-04-25 08:45 | PM.IMPN ---
Progress Note: A&P Assessment and Plan (1) Leukocytosis: Code(s): D72.829 - Elevated white blood cell count, unspecified Status: Acute Assessment and Plan: WBC 12 at admission Currently trending up at 23.6 Stool cultures ordered Known PNA Antibiotics on board Continue to trend (2) Diarrhea: Code(s): R19.7 - Diarrhea, unspecified Status: Acute Assessment and Plan: 4 episodes since this am WBC elevated at 23.6 Stool cultures ordered Continue to trend (3) Sepsis: Code(s): A41.9 - Sepsis, unspecified organism Status: Acute Assessment and Plan: Patient meets sirs criteria with tachycardia, tachypnea, Fever, leukocytosis, and source of infection Source of infection: PNA Chest CT confirms RUL IV Levaquin given in ED, Changed to azithromycin and ceftriaxone Blood cultures NGTD Sputum culture ordered, and still not collected WBC trending up currently 23.6 Stool cultures ordered IV fluids given in ed Trend vital signs Adjust therapy as indicated (4) LASHAE (acute kidney injury): Code(s): N17.9 - Acute kidney failure, unspecified Status: Acute Assessment and Plan: Creatinine elevated at 1.30 Baseline 0.90 Could be related to diarrhea, and dehydration Continue to trend avoid nephrotoxic medication If worsening consider fluids (5) Community acquired pneumonia: Code(s): J18.9 - Pneumonia, unspecified organism Status: Acute Assessment and Plan: Present with shortness of breath Chest xray shows bibasilar airspace disease may represent pneumonia or edema Chest ct shows Pneumonia involving anterior segment right upper lobe Continue ceftriaxone and azithromycin WBC slightly elevated at 12.0, trending up currently 23.6 Continue to trend labs Sputum culture not collected Chest xray tomorrow am Neb treatments (6) Acute respiratory failure: Code(s): J96.00 - Acute respiratory failure, unspecified whether with hypoxia or hypercapnia Status: Acute Assessment and Plan: Notable SOB and hypoxia in the 80s and has required oxygen supplementation Tachypneic in the ED with respiratory rate of >[address] shows new PNA Supplemental oxygen ordered, wean to maintain saturations >88% titrating down Resolving (7) Tachycardia: Code(s): R00.0 - Tachycardia, unspecified Status: Acute Assessment and Plan: EKG shows ST in 110s Not taken his metoprolol Restart home medications Tele monitor Continue to trend VS Resolved Secondary to resumption of home meds (8) COPD (chronic obstructive pulmonary disease): Qualifiers: COPD type: unspecified COPD Qualified Code(s): J44.9 - Chronic obstructive pulmonary disease, unspecified Code(s): J44.9 - Chronic obstructive pulmonary disease, unspecified Status: Acute Assessment and Plan: Complaints of shortness of breath, increased sputum with changes, increased wheezes CT of the chest shows emphysema Antibiotics on board Sputum culture ordered Supplemental oxygen wean to maintain saturations >88% Chronic COPD exacerbated by acute pneumonia Neb treatments (9) Essential (primary) hypertension: Code(s): I10 - Essential (primary) hypertension Status: Acute Assessment and Plan: Current BP is 130/67 Continue home lisinopril, metoprolol, amlodipine Continue to trend Adjust therapy as indicated (10) ALESSIA (obstructive sleep apnea): Code(s): G47.33 - Obstructive sleep apnea (adult) (pediatric) Status: Acute Assessment and Plan: Continue home bipap with home settings (11) Type 2 diabetes mellitus without complications: Qualifiers: Diabetes mellitus marine oil terminal superintendent insulin use: unspeci
--- NOTE | 2022-04-25 08:45 | P.PNIM_ITS ---
Progress Note: A&P Assessment and Plan (1) Leukocytosis: Code(s): D72.829 - Elevated white blood cell count, unspecified Status: Acute Assessment and Plan: * WBC 12 at admission * Currently trending up at 23.6 * Stool cultures ordered * Known PNA * Antibiotics on board * Continue to trend (2) Diarrhea: Code(s): R19.7 - Diarrhea, unspecified Status: Acute Assessment and Plan: * 4 episodes since this am * WBC elevated at 23.6 * Stool cultures ordered * Continue to trend (3) Sepsis: Code(s): A41.9 - Sepsis, unspecified organism Status: Acute Assessment and Plan: * Patient meets sirs criteria with tachycardia, tachypnea, Fever, leukocytosis, and source of infection * Source of infection: PNA * Chest CT confirms RUL * IV Levaquin given in ED, Changed to azithromycin and ceftriaxone * Blood cultures NGTD * Sputum culture ordered, and still not collected * WBC trending up currently 23.6 * Stool cultures ordered * IV fluids given in ed * Trend vital signs * Adjust therapy as indicated (4) LASHAE (acute kidney injury): Code(s): N17.9 - Acute kidney failure, unspecified Status: Acute Assessment and Plan: * Creatinine elevated at 1.30 * Baseline 0.90 * Could be related to diarrhea, and dehydration * Continue to trend * avoid nephrotoxic medication * If worsening consider fluids (5) Community acquired pneumonia: Code(s): J18.9 - Pneumonia, unspecified organism Status: Acute Assessment and Plan: * Present with shortness of breath * Chest xray shows bibasilar airspace disease may represent pneumonia or edema * Chest ct shows Pneumonia involving anterior segment right upper lobe * Continue ceftriaxone and azithromycin * WBC slightly elevated at 12.0, trending up currently 23.6 * Continue to trend labs * Sputum culture not collected * Chest xray tomorrow am * Neb treatments (6) Acute respiratory failure: Code(s): J96.00 - Acute respiratory failure, unspecified whether with hypoxia or hypercapnia Status: Acute Assessment and Plan: * Notable SOB and hypoxia in the 80s and has required oxygen supplementation * Tachypneic in the ED with respiratory rate of >30 * Chest CT shows new PNA * Supplemental oxygen ordered, wean to maintain saturations >88% * titrating down * Resolving (7) Tachycardia: Code(s): R00.0 - Tachycardia, unspecified Status: Acute Assessment and Plan: * EKG shows ST in 110s * Not taken his metoprolol * Restart home medications * Tele monitor * Continue to trend VS * Resolved * Secondary to resumption of home meds (8) COPD (chronic obstructive pulmonary disease): Qualifiers: COPD type: unspecified COPD Qualified Code(s): J44.9 - Chronic obstructive pulmonary disease, unspecified Code(s): J44.9 - Chronic obstructive pulmonary disease, unspecified Status: Acute Assessment and Plan: * Complaints of shortness of breath, increased sputum with changes, increased wheezes * CT of the chest shows emphysema * Antibiotics on board * Sputum culture ordered * Supplemental oxygen wean to maintain saturations >88% * Chronic COPD exacerbated by acute pn
[2022-04-25] MEDS: METOPROLOL TARTRATE 50 MG TAB PO ×2 (08:50→21:10)
[2022-04-25] MEDS: lisinopriL 20 MG TABLET 40 MG PO (08:50)
[2022-04-25] MEDS: SERTRALINE HCL 50 MG TABLET 100 MG PO (08:50)
[2022-04-25] MEDS: FLUTICASONE PROPIONATE 0.05% NA SPR 16 GM BTL (*BKC) 2 SPRAY NASAL (08:51)
[2022-04-25] MEDS: ENOXAPARIN 40 MG/0.4 ML SYRINGE SUB-Q (08:51)
[2022-04-25] MEDS: amLODIPine BESYLATE 5 MG TABLET PO (08:51)
[2022-04-25] MEDS: CLOPIDOGREL BISULFATE 75 MG TABLET PO (08:51)
[2022-04-25 12:13] LABS: Glucose Point of Care 106 mg/dl (65-105)
[2022-04-25] MEDS: HYDROcodone/acetaminophen (*CRX) 5-325 MG TABLET 1 TAB PO ×2 (13:18→18:37)
[2022-04-25 15:26] LABS: Toxigenic C. Diff NEGATIVE (NEGATIVE)
[2022-04-25 17:00] LABS: Glucose Point of Care 103 mg/dl (65-105)
[2022-04-25 20:51] LABS: Glucose Point of Care 175 mg/dl (65-105)
[2022-04-26] VITALS (22 sets, daily range): BP systolic 114–180; BP diastolic 51–100; PULSE 77–124; RESP 14–23; TEMP 36.4–37.7; O2SAT 86–93
[2022-04-26] MEDS: ALBUTEROL SULFATE NEB 2.5 MG/3 ML INH 1.25 MG INHALATION ×4 (01:50→20:28)
[2022-04-26] MEDS: LEVOTHYROXINE SODIUM 150 MCG TABLET PO (05:40)
[2022-04-26 06:36] LABS: Basophils Percent Auto 0.2 % (0.2-1.2); Eosinophils Percent Auto 0.2 % (0-4.4); Hematocrit 38.2 % (42.0-52.0); Immature Granulocyte Absolute 0.14 K/mm3 (0.00-0.031); Immature Granulocyte Percent A 0.9 % (0-0.5); Immature Platelet Fraction Pct 8.2 % (0.9-11.2); Lymphocytes Absolute Auto 1.08 K/mm3 (0.9-3.2); Mean Corpuscular HGB Conc 31.4 g/dl (32-36); Mean Corpuscular Hemoglobin 29.3 pg (26-34); Mean Corpuscular Volume 93.4 fl (80-100); Mean Platelet Volume 11.6 fl (7.4-10.4); Monocytes Absolute Auto 1.2 K/mm3 (0.1-0.6); Monocytes Percent Auto 7.9 % (2.6-8.5); Neutrophils Percent Auto 83.8 % (45.5-73.1); Platelet Count Result 146 k/mm3 (150-375); Red Blood Count 4.09 M/mm3 (4.6-6.20); Red Cell Distribution Width 14.3 % (11.5-14.5); White Blood Count 15.5 K/mm3 (4.5-10.0)
[2022-04-26 06:42] LABS: Alanine Aminotransferase 23 U/L (6-50); Albumin Level 3.7 g/dL (3.5-5.1); Alkaline Phosphatase 92 U/L (38-126); Anion Gap 6 mmol/L (8-16); Aspartate Amino Transferase 28 U/L (17-59); Bilirubin,Total 0.6 mg/dL (0.2-1.3); Blood Urea Nitrogen 23 mg/dL (9-20); Calcium 8.1 mg/dL (8.4-10.2); Carbon Dioxide 31 mmol/L (22-30); Chloride 96 mmol/L (98-107); Estimated CRCL calculation 76 ml/min; Estimated Glomerular Filt Rate > 60; Glucose 119 mg/dL (65-110); Magnesium 1.7 mg/dL (1.6-2.3); Potassium 3.6 mmol/L (3.4-5.0); Sodium 133 mmol/L (137-145)
[2022-04-26 07:46] LABS: Glucose Point of Care 122 mg/dl (65-105)
[2022-04-26] MEDS: CLOPIDOGREL BISULFATE 75 MG TABLET PO (08:28)
[2022-04-26] MEDS: MAGNESIUM SULF 2 GM/WATER 50ML 2 GM/50 ML BAG IVPB (08:28)
[2022-04-26] MEDS: SERTRALINE HCL 50 MG TABLET 100 MG PO (08:28)
[2022-04-26] MEDS: ENOXAPARIN 40 MG/0.4 ML SYRINGE SUB-Q (08:29)
[2022-04-26] MEDS: lisinopriL 20 MG TABLET 40 MG PO (08:29)
[2022-04-26] MEDS: FLUTICASONE PROPIONATE 0.05% NA SPR 16 GM BTL (*BKC) 2 SPRAY NASAL (08:31)
[2022-04-26] MEDS: ACETAMINOPHEN 500 MG TABLET 1000 MG PO ×2 (08:38→19:33)
[2022-04-26] MEDS: ONDANSETRON INJ 4 MG/2 ML VIAL IV PUSH ×2 (08:39→19:33)
--- NOTE | 2022-04-26 10:15 | P.PNIM_ITS ---
Progress Note: A&P Assessment and Plan (1) Leukocytosis: Code(s): D72.829 - Elevated white blood cell count, unspecified Status: Acute Assessment and Plan: * WBC 12 at admission * Was trending up at 23.6, currently 15.5 * Stool cultures ordered, and pending * Cdiff negative * Known PNA * Antibiotics on board * Continue to trend (2) Diarrhea: Code(s): R19.7 - Diarrhea, unspecified Status: Acute Assessment and Plan: * 4 episodes since this am * WBC elevated at 23.6, trending down currently 15.5 * Stool cultures ordered, pending * Negative C.Diff * Continue to trend * Seems to be resolving (3) Sepsis: Code(s): A41.9 - Sepsis, unspecified organism Status: Acute Assessment and Plan: * Patient meets sirs criteria with tachycardia, tachypnea, Fever, leukocytosis, and source of infection * Source of infection: PNA * Chest CT confirms RUL * IV Levaquin given in ED, Changed to azithromycin and ceftriaxone * Blood cultures NGTD * Sputum culture ordered, and still not collected * WBC was trending up at 23.6, currently 15.5 * Stool cultures ordered and pending * IV fluids given in ed * Trend vital signs * Adjust therapy as indicated (4) LASHAE (acute kidney injury): Code(s): N17.9 - Acute kidney failure, unspecified Status: Acute Assessment and Plan: * Creatinine elevated at 1.30, back at baseline at 0.90 * Baseline 0.90 * Could be related to diarrhea, and dehydration * Continue to trend * avoid nephrotoxic medication * If worsening consider fluids * Resolving (5) Community acquired pneumonia: Code(s): J18.9 - Pneumonia, unspecified organism Status: Acute Assessment and Plan: * Present with shortness of breath * Chest xray (04/24/22) shows bibasilar airspace disease may represent pneumonia or edema * Chest ct shows Pneumonia involving anterior segment right upper lobe * Continue ceftriaxone and azithromycin * WBC slightly elevated at 12.0, trending up at 23.6, currently 15.5 * Continue to trend labs * Sputum culture not collected * Chest xray (04/26/22) * Neb treatments (6) Acute respiratory failure: Code(s): J96.00 - Acute respiratory failure, unspecified whether with hypoxia or hypercapnia Status: Acute Assessment and Plan: * Notable SOB and hypoxia in the 80s and has required oxygen supplementation * Tachypneic in the ED with respiratory rate of >30 * Chest CT shows new PNA * Supplemental oxygen ordered, wean to maintain saturations >88% * titrating down * Resolved (7) COPD (chronic obstructive pulmonary disease): Qualifiers: COPD type: unspecified COPD Qualified Code(s): J44.9 - Chronic obstructive pulmonary disease, unspecified Code(s): J44.9 - Chronic obstructive pulmonary disease, unspecified Status: Acute Assessment and Plan: * Complaints of shortness of breath, increased sputum with changes, increased wheezes * CT of the chest shows emphysema * Antibiotics on board * Sputum culture ordered * Supplemental oxygen wean to maintain saturations >88% * Chronic COPD exacerbated by acute pneumonia * Neb treatments (8) Essential (primary) hypertension: Code(s): I10 - Essential (p
--- NOTE | 2022-04-26 10:15 | PM.IMPN ---
Progress Note: A&P Assessment and Plan (1) Leukocytosis: Code(s): D72.829 - Elevated white blood cell count, unspecified Status: Acute Assessment and Plan: WBC 12 at admission Was trending up at 23.6, currently 15.5 Stool cultures ordered, and pending Cdiff negative Known PNA Antibiotics on board Continue to trend (2) Diarrhea: Code(s): R19.7 - Diarrhea, unspecified Status: Acute Assessment and Plan: 4 episodes since this am WBC elevated at 23.6, trending down currently 15.5 Stool cultures ordered, pending Negative C.Diff Continue to trend Seems to be resolving (3) Sepsis: Code(s): A41.9 - Sepsis, unspecified organism Status: Acute Assessment and Plan: Patient meets sirs criteria with tachycardia, tachypnea, Fever, leukocytosis, and source of infection Source of infection: PNA Chest CT confirms RUL IV Levaquin given in ED, Changed to azithromycin and ceftriaxone Blood cultures NGTD Sputum culture ordered, and still not collected WBC was trending up at 23.6, currently 15.5 Stool cultures ordered and pending IV fluids given in ed Trend vital signs Adjust therapy as indicated (4) LASHAE (acute kidney injury): Code(s): N17.9 - Acute kidney failure, unspecified Status: Acute Assessment and Plan: Creatinine elevated at 1.30, back at baseline at 0.90 Baseline 0.90 Could be related to diarrhea, and dehydration Continue to trend avoid nephrotoxic medication If worsening consider fluids Resolving (5) Community acquired pneumonia: Code(s): J18.9 - Pneumonia, unspecified organism Status: Acute Assessment and Plan: Present with shortness of breath Chest xray (04/24/22) shows bibasilar airspace disease may represent pneumonia or edema Chest ct shows Pneumonia involving anterior segment right upper lobe Continue ceftriaxone and azithromycin WBC slightly elevated at 12.0, trending up at 23.6, currently 15.5 Continue to trend labs Sputum culture not collected Chest xray (04/26/22) Neb treatments (6) Acute respiratory failure: Code(s): J96.00 - Acute respiratory failure, unspecified whether with hypoxia or hypercapnia Status: Acute Assessment and Plan: Notable SOB and hypoxia in the 80s and has required oxygen supplementation Tachypneic in the ED with respiratory rate of >[address] shows new PNA Supplemental oxygen ordered, wean to maintain saturations >88% titrating down Resolved (7) COPD (chronic obstructive pulmonary disease): Qualifiers: COPD type: unspecified COPD Qualified Code(s): J44.9 - Chronic obstructive pulmonary disease, unspecified Code(s): J44.9 - Chronic obstructive pulmonary disease, unspecified Status: Acute Assessment and Plan: Complaints of shortness of breath, increased sputum with changes, increased wheezes CT of the chest shows emphysema Antibiotics on board Sputum culture ordered Supplemental oxygen wean to maintain saturations >88% Chronic COPD exacerbated by acute pneumonia Neb treatments (8) Essential (primary) hypertension: Code(s): I10 - Essential (primary) hypertension Status: Acute Assessment and Plan: Current BP is 123/51 Continue home lisinopril, metoprolol, amlodipine Continue to trend Adjust therapy as indicated (9) ALESSIA (obstructive sleep apnea): Code(s): G47.33 - Obstructive sleep apnea (adult) (pediatric) Status: Acute Assessment and Plan: Continue home bipap with home settings (10) Type 2 diabetes mellitus without complications: Qualifiers: Diabetes mellitus detention insulin use: unspecified detention insulin use status Qualified Code(s): E11.9 - Type 2 diabetes mellitus without compli
--- NOTE | 2022-04-26 11:16 | ECG_ITS ---
Measurements Intervals [place] Rate: 92 P: 8 TN: 159 QRS: -50 QRSD: 149 T: 55 QT: 394 QTc: 489 Interpretive Statements SINUS RHYTHM RIGHT BUNDLE BRANCH BLOCK LEFT ANTERIOR FASCICULAR BLOCK ABNORMAL ECG COMPARED TO ECG 04/24/2022 13:57:58 SINUS RHYTHM NOW PRESENT LEFT ANTERIOR FASCICULAR BLOCK NOW PRESENT Electronically Signed On 04-26-2022 12:10:24 ACCOUNTING AUDITOR by Florentin Stephens D.O.
[2022-04-26 11:25] LABS: Glucose Point of Care 130 mg/dl (65-105)
[2022-04-26 12:04] LABS: Troponin I 0.016 ng/mL (0.000-0.034)
[2022-04-26 16:26] LABS: Glucose Point of Care 146 mg/dl (65-105)
[2022-04-26] MEDS: METOPROLOL TARTRATE 50 MG TAB PO (17:56)
--- NOTE | 2022-04-26 19:20 | PC.NURSE ---
at approx 1740, nurse noted that the pt heart rate was sustaining 120-130 for close to 2 minutes. nurse checked on pt and he was laying down peacefully. Nurse asked the delivery supervisor to get a blood pressure while she called the doctor.the delivery supervisor reported a manual blood pressure of 180/100. nurse called doctor and told him of the heart rate and blood pressure. doctor asked nurse to give the dose of metoprolol 50mg that was scheduled at 2100 early and to recheck heart rate and blood pressure after 1 hour. Metoprolol was given at 1756. Pt heart rate was down to 85 and blood pressure was 119/65. these findings were charted and report was given to night nurse of the situation.
[2022-04-26] MEDS: WATER FOR IRRIGATION, STERILE 1,000 ML BOTTLE 1000 ML (21:24)
[2022-04-27] VITALS (16 sets, daily range): BP systolic 105–119; BP diastolic 46–54; PULSE 51–81; RESP 14–20; TEMP 36.3; O2SAT 86–99
[2022-04-27] MEDS: ALBUTEROL SULFATE NEB 2.5 MG/3 ML INH 1.25 MG INHALATION ×2 (02:01→08:32)
[2022-04-27] MEDS: LEVOTHYROXINE SODIUM 150 MCG TABLET PO (05:56)
[2022-04-27] MEDS: ACETAMINOPHEN 500 MG TABLET 1000 MG PO (05:56)
[2022-04-27 06:16] LABS: Basophils Percent Auto 0.2 % (0.2-1.2); Eosinophils Absolute Auto 0.1 K/mm3 (0-0.3); Eosinophils Percent Auto 0.9 % (0-4.4); Hematocrit 33.7 % (42.0-52.0); Hemoglobin 10.8 g/dL (14.0-18.0); Immature Granulocyte Absolute 0.12 K/mm3 (0.00-0.031); Immature Granulocyte Percent A 1.1 % (0-0.5); Lymphocytes Absolute Auto 1.12 K/mm3 (0.9-3.2); Lymphocytes Percent Auto 10.4 % (18.3-44.2); Mean Corpuscular Hemoglobin 29.2 pg (26-34); Mean Corpuscular Volume 91.1 fl (80-100); Mean Platelet Volume 11.3 fl (7.4-10.4); Monocytes Percent Auto 8.8 % (2.6-8.5); Neutrophils Absolute Auto 8.5 K/mm3 (1.3-6.7); Neutrophils Percent Auto 78.6 % (45.5-73.1); Platelet Count Result 142 k/mm3 (150-375); Red Cell Distribution Width 14.2 % (11.5-14.5); White Blood Count 10.8 K/mm3 (4.5-10.0)
[2022-04-27 06:30] LABS: Alanine Aminotransferase 23 U/L (6-50); Albumin Level 3.4 g/dL (3.5-5.1); Alkaline Phosphatase 90 U/L (38-126); Anion Gap 4 mmol/L (8-16); Aspartate Amino Transferase 27 U/L (17-59); Bilirubin,Total 0.5 mg/dL (0.2-1.3); Blood Urea Nitrogen 23 mg/dL (9-20); Calcium 7.7 mg/dL (8.4-10.2); Carbon Dioxide 34 mmol/L (22-30); Chloride 96 mmol/L (98-107); Estimated CRCL calculation 63 ml/min; Estimated Glomerular Filt Rate > 60; Glucose 108 mg/dL (65-110); Magnesium 2.3 mg/dL (1.6-2.3); Potassium 3.5 mmol/L (3.4-5.0); Sodium 134 mmol/L (137-145)
[2022-04-27 07:45] LABS: Glucose Point of Care 157 mg/dl (65-105)
[2022-04-27] MEDS: METOPROLOL TARTRATE 50 MG TAB PO (08:16)
[2022-04-27] MEDS: SERTRALINE HCL 50 MG TABLET 100 MG PO (08:16)
[2022-04-27] MEDS: lisinopriL 20 MG TABLET 40 MG PO (08:16)
[2022-04-27] MEDS: ENOXAPARIN 40 MG/0.4 ML SYRINGE SUB-Q (08:17)
[2022-04-27] MEDS: FLUTICASONE PROPIONATE 0.05% NA SPR 16 GM BTL (*BKC) 2 SPRAY NASAL (08:17)
[2022-04-27] MEDS: amLODIPine BESYLATE 5 MG TABLET PO (08:17)
[2022-04-27] MEDS: CLOPIDOGREL BISULFATE 75 MG TABLET PO (08:17)
--- NOTE | 2022-04-27 09:15 | PM.DS ---
DS: Admitting Diagnosis Discharge Date 04/27/2022 0915 Admitting Diagnosis Pneumonia with tachycardia DS: Discharge Diagnosis Discharge Diagnosis (1) Leukocytosis: Code(s): D72.829 - Elevated white blood cell count, unspecified Status: Acute Assessment and Plan: WBC 12 at admission Was trending up at 23.6, currently 10.8 Stool cultures negative Cdiff negative Known PNA Antibiotics on board Continue to trend (2) Diarrhea: Code(s): R19.7 - Diarrhea, unspecified Status: Acute Assessment and Plan: 4 episodes since this am WBC elevated at 23.6, trending down currently 15.5 Stool cultures ordered, pending Negative C.Diff Continue to trend Seems to be resolving (3) Sepsis: Code(s): A41.9 - Sepsis, unspecified organism Status: Acute Assessment and Plan: Patient meets sirs criteria with tachycardia, tachypnea, Fever, leukocytosis, and source of infection Source of infection: PNA Chest CT confirms RUL IV Levaquin given in ED, Changed to azithromycin and ceftriaxone Blood cultures NGTD Sputum culture ordered, and still not collected WBC was trending up at 23.6, currently 10.8 Stool cultures ordered and pending IV fluids given in ed Trend vital signs Adjust therapy as indicated (4) LASHAE (acute kidney injury): Code(s): N17.9 - Acute kidney failure, unspecified Status: Acute Assessment and Plan: Creatinine elevated at 1.30, currently 1.10 Baseline 0.90 Could be related to diarrhea, and dehydration Continue to trend avoid nephrotoxic medication If worsening consider fluids Resolving (5) Community acquired pneumonia: Code(s): J18.9 - Pneumonia, unspecified organism Status: Acute Assessment and Plan: Present with shortness of breath Chest xray (04/24/22) shows bibasilar airspace disease may represent pneumonia or edema Chest ct shows Pneumonia involving anterior segment right upper lobe Continue ceftriaxone and azithromycin WBC slightly elevated at 12.0, trending up at 23.6, currently 15.5 Continue to trend labs Sputum culture not collected Chest xray (04/26/22) persistent opacity of the right upper lobe Neb treatments (6) Acute respiratory failure: Code(s): J96.00 - Acute respiratory failure, unspecified whether with hypoxia or hypercapnia Status: Acute Assessment and Plan: Notable SOB and hypoxia in the 80s and has required oxygen supplementation Tachypneic in the ED with respiratory rate of >[address] shows new PNA Supplemental oxygen ordered, wean to maintain saturations >88% titrating down Resolved (7) COPD (chronic obstructive pulmonary disease): Qualifiers: COPD type: unspecified COPD Qualified Code(s): J44.9 - Chronic obstructive pulmonary disease, unspecified Code(s): J44.9 - Chronic obstructive pulmonary disease, unspecified Status: Acute Assessment and Plan: Complaints of shortness of breath, increased sputum with changes, increased wheezes CT of the chest shows emphysema Antibiotics on board Sputum culture ordered Supplemental oxygen wean to maintain saturations >88% Chronic COPD exacerbated by acute pneumonia Neb treatments (8) Essential (primary) hypertension: Code(s): I10 - Essential (primary) hypertension Status: Acute Assessment and Plan: Current BP is 105/54 Continue home lisinopril, metoprolol, amlodipine Continue to trend Adjust therapy as indicated (9) ALESSIA (obstructive sleep apnea): Code(s): G47.33 - Obstructive sleep apnea (adult) (pediatric) Status: Acute Assessment and Plan: Continue home bipap with home settings (10) Type 2 diabetes mellitus without complications: Qualifiers: Diabetes jessica
--- NOTE | 2022-04-27 09:15 | P.DS_ITS ---
DS: Admitting Diagnosis Discharge Date 04/27/2022 0915 Admitting Diagnosis Pneumonia with tachycardia DS: Discharge Diagnosis Discharge Diagnosis (1) Leukocytosis: Code(s): D72.829 - Elevated white blood cell count, unspecified Status: Acute Assessment and Plan: * WBC 12 at admission * Was trending up at 23.6, currently 10.8 * Stool cultures negative * Cdiff negative * Known PNA * Antibiotics on board * Continue to trend (2) Diarrhea: Code(s): R19.7 - Diarrhea, unspecified Status: Acute Assessment and Plan: * 4 episodes since this am * WBC elevated at 23.6, trending down currently 15.5 * Stool cultures ordered, pending * Negative C.Diff * Continue to trend * Seems to be resolving (3) Sepsis: Code(s): A41.9 - Sepsis, unspecified organism Status: Acute Assessment and Plan: * Patient meets sirs criteria with tachycardia, tachypnea, Fever, leukocytosis, and source of infection * Source of infection: PNA * Chest CT confirms RUL * IV Levaquin given in ED, Changed to azithromycin and ceftriaxone * Blood cultures NGTD * Sputum culture ordered, and still not collected * WBC was trending up at 23.6, currently 10.8 * Stool cultures ordered and pending * IV fluids given in ed * Trend vital signs * Adjust therapy as indicated (4) LASHAE (acute kidney injury): Code(s): N17.9 - Acute kidney failure, unspecified Status: Acute Assessment and Plan: * Creatinine elevated at 1.30, currently 1.10 * Baseline 0.90 * Could be related to diarrhea, and dehydration * Continue to trend * avoid nephrotoxic medication * If worsening consider fluids * Resolving (5) Community acquired pneumonia: Code(s): J18.9 - Pneumonia, unspecified organism Status: Acute Assessment and Plan: * Present with shortness of breath * Chest xray (04/24/22) shows bibasilar airspace disease may represent pneumonia or edema * Chest ct shows Pneumonia involving anterior segment right upper lobe * Continue ceftriaxone and azithromycin * WBC slightly elevated at 12.0, trending up at 23.6, currently 15.5 * Continue to trend labs * Sputum culture not collected * Chest xray (04/26/22) persistent opacity of the right upper lobe * Neb treatments (6) Acute respiratory failure: Code(s): J96.00 - Acute respiratory failure, unspecified whether with hypoxia or hypercapnia Status: Acute Assessment and Plan: * Notable SOB and hypoxia in the 80s and has required oxygen supplementation * Tachypneic in the ED with respiratory rate of >30 * Chest CT shows new PNA * Supplemental oxygen ordered, wean to maintain saturations >88% * titrating down * Resolved (7) COPD (chronic obstructive pulmonary disease): Qualifiers: COPD type: unspecified COPD Qualified Code(s): J44.9 - Chronic obstructive pulmonary disease, unspecified Code(s): J44.9 - Chronic obstructive pulmonary disease, unspecified Status: Acute Assessment and Plan: * Complaints of shortness of breath, increased sputum with changes, increased wheezes * CT of the chest shows emphysema * Antibiotics on board * Sputum culture ordered * Supplemental oxygen wean to maintain saturations >88% * Chronic COPD exacerbated by acute pneumonia
[2022-04-27] MEDS: FUROSEMIDE INJ 40 MG/4 ML VIAL 20 MG IV PUSH (11:09)
[2022-04-27 11:36] LABS: Glucose Point of Care 158 mg/dl (65-105)
--- NOTE | 2022-04-27 11:53 | HOMEO2EVAL ---
Evaluation was performed at [facility] Home Oxygen Evaluation RC: Home Oxygen (O2) Evaluation Start: 04/27/22 11:15 Freq: ONCE Status: Active Protocol: RPE Activity Type Activity Date Activity User E-sign Co-sign Detail Recorded Client Recorded Date Recorded By Document 04/27/22 11:20 FRANCISCO JAVIER [email or web address] 04/27/22 11:53 FRANCISCO JAVIER Document 04/27/22 11:23 FRANCISCO JAVIER [email or web address] 04/27/22 11:53 FRANCISCO JAVIER Document 04/27/22 11:24 FRANCISCO JAVIER [email or web address] 04/27/22 11:53 FRANCISCO JAVIER Document 04/27/22 11:25 FRANCISCO JAVIER [email or web address] 04/27/22 11:53 FRANCISCO JAVIER Document 04/27/22 11:35 FRANCISCO JAVIER [email or web address] 04/27/22 11:53 FRANCISCO JAVIER 04/27/22 04/27/22 04/27/22 11:20 11:23 11:24 Home O2 Evaluation [Oxygen] -Test Phase Resting Exercise Exercise -Oxygen Delivery Room Air Room Air Nasal Cannula -Oxygen Flow Rate (L/min) 1 [Pulse Oximetry] -Pulse Oximetry (90-100 %) 92 86 L 87 L [Pulse Rate] -Pulse Rate (60-100 beats/min) 51 L 78 [Comments] -Home Oxygen Evaluation Comments [Charges] -Treatment Charges O2 Evaluation - Inpatient 04/27/22 04/27/22 11:25 11:35 Home O2 Evaluation [Oxygen] -Test Phase Exercise Resting -Oxygen Delivery Nasal Cannula Room Air -Oxygen Flow Rate (L/min) 2 [Pulse Oximetry] -Pulse Oximetry (90-100 %) 92 91 [Pulse Rate] -Pulse Rate (60-100 beats/min) 59 L [Comments] -Home Oxygen Evaluation Comments Pt requirs 2 L with activity [Charges] -Treatment Charges
--- NOTE | 2022-04-27 11:54 | PCRCNOTE ---
Pt requires 2 l with activity. Home respiratory equipment is with [facility]. I will contact and have O2 set up for home use at 2 Liters with activity
== END 2022-04-27 12:30 | disposition home or self-care (01) | DRG 871 ==
LOC: ANHED 11:56 → ANHIMU 14:08 → ANH3MEDSUR 04-25 11:07
PROVIDERS: Admitting Provider Chiropractor; Emergency Provider Emergency Medicine; PCP Student in an Organized Health Care Education/Training Program; Visit Provider Nurse Practitioner
DX: A41.9 Sepsis, unspecified organism (principal); J18.9 Pneumonia, unspecified organism; J96.00 Acute respiratory failure, unspecified whether with hypoxia or hypercapnia; J44.0 Chronic obstructive pulmonary disease with (acute) lower respiratory infection; C34.91 Malignant neoplasm of unspecified part of right bronchus or lung; N17.9 Acute kidney failure, unspecified; I10 Essential (primary) hypertension; I25.10 Atherosclerotic heart disease of native coronary artery without angina pectoris; I65.22 Occlusion and stenosis of left carotid artery; E11.51 Type 2 diabetes mellitus with diabetic peripheral angiopathy without gangrene; E78.5 Hyperlipidemia, unspecified; E03.9 Hypothyroidism, unspecified; E53.8 Deficiency of other specified B group vitamins; K57.30 Diverticulosis of large intestine without perforation or abscess without bleeding; K21.9 Gastro-esophageal reflux disease without esophagitis; R19.7 Diarrhea, unspecified; N40.0 Benign prostatic hyperplasia without lower urinary tract symptoms; M54.16 Radiculopathy, lumbar region; Z20.822 Contact with and (suspected) exposure to COVID-19; G47.30 Sleep apnea, unspecified; F41.9 Anxiety disorder, unspecified; F32.A Depression, unspecified; I25.2 Old myocardial infarction; Z87.891 Personal history of nicotine dependence; Z79.02 Long term (current) use of antithrombotics/antiplatelets; Z95.1 Presence of aortocoronary bypass graft
CPT/HCPCS: 36415; 71045; 71250; 80053; 81001; 82948; 83036; 83605; 83735; 83880; 84484; 85025; 85055; 85610; 85730; 87040; 87045; 87177; 87209; 87269; 87272; 87427; 87493; 87637; 89055; 93005; 94618; 94640; 96365; 96367; 96372; 96375; 99285; A9270; G0378; J0456; J0696; J1650; J1940; J1956; J2405; J3475; J7030; J7050

== ENCOUNTER 2022-05-25 17:18 | Emergency (ER) | payer OTHER, SELFPAY ==
--- NOTE | ~2022-05-25 | XR_ITS ---
EXAM: XR hand RT min 3V DATE: 05/25/2022 20:16 HISTORY: fall with pain . COMPARISON: 08/08/2013. FINDINGS: Normal mineralization. No fracture or dislocation. No lytic or blastic lesion. Mild scatte red degenerative change. Surgical clips at the medial wrist. No erosion or periosteal change. Soft ti ssues within normal limits. IMPRESSION: No acute osseous finding in the right hand. Reviewed, dictated and finalized at location K. CTOR OF INSTITUTIONAL GIVING
--- NOTE | ~2022-05-25 | XR_ITS ---
EXAM: XR shoulder RT min 2V DATE: 05/25/2022 20:16 HISTORY: fall with limited ROM . COMPARISON: None available. FINDINGS: Normal mineralization. No fracture or dislocation. No lytic or blastic lesion. Osteoarthri tic change at the acromioclavicular and glenohumeral joints. Rotator cuff calcific tendinitis. Subacr omial narrowing as can occur with rotator cuff pathology. No erosion or periosteal change. Soft tissu es within normal limits. Partially visualized intact sternotomy wires. IMPRESSION: No acute osseous finding in the right shoulder. Reviewed, dictated and finalized at location K. ISTIC TECHNICIAN
--- NOTE | ~2022-05-25 | CT_ITS ---
EXAMINATION: CT brain wo con DATE: 05/25/2022 22:34 INDICATION: fall, hi, on plavix . TECHNIQUE: Computed tomography (CT) of the head was performed without intravenous contrast. The mA wa s adjusted according to patient size. Iterative reconstruction technique was employed. The dose-lengt h product was 681.00 mGy-cm. COMPARISON: 08/08/2013. FINDINGS: No acute intracranial hemorrhage or extra-axial fluid collection. No hydrocephalus, mass, or herniation. No acute ischemic infarct. Unremarkable dural venous sinus attenuation. No acute osseous abnormality. The aerated spaces are clear. Moderate atrophy and chronic white matter change. Atherosclerotic intracranial calcification. IMPRESSION: No acute intracranial process. Reviewed, dictated and finalized at location K. INUM SIDING APPLICATOR
[2022-05-25 17:29] VITALS: BP 199/80; PULSE 82; RESP 18; TEMP 36.6; O2SAT 93
--- NOTE | 2022-05-25 21:50 | ED.FALL ---
HPI - Fall General Chief Complaint: Fall Stated Complaint: fall/right shoulder and hand pain Time Seen by Provider: 05/25/22 21:45 Source: patient Mode of arrival: ambulatory Limitations: no limitations History of Present Illness HPI Narrative: Patient is a 66 y/o male who presents to the ED with c/o fall. Patient reports he was at work this morning when he tripped on a ledge of the concrete sidewalk and fell forward, bracing himself with his right arm. He did hit his head slightly in the fall, but denied direct impact or LOC. Denied prodromal symptoms. He complains of pain to his right lateral hand and right shoulder. Patient has had issues with his right shoulder since last year and has been seeing an internet marketing specialist with [facility]. He is scheduled to undergo CT of his right shoulder soon. No neck or back pain, dizziness, lightheadedness, vision changes, weakness, elbow pain, chest pain, difficulty breathing. Related Data Home Medications Medication Instructions Recorded Confirmed fluticasone propionate 50 2 spray intranasal DAILY 02/27/19 04/24/22 mcg/actuation nasal spray,suspension sertraline 100 mg tablet (Zoloft) 100 mg PO DAILY 02/27/19 04/24/22 acetaminophen 325 mg capsule 325 mg PO Q6H PRN pain 02/17/22 04/24/22 albuterol sulfate 2.5 mg/3 mL 2.5 mg inhalation Q4-6H PRN Pain 02/17/22 04/24/22 (0.083 %) solution for nebulization albuterol sulfate 90 mcg/actuation 1 puff inhalation Q4H PRN 02/17/22 04/24/22 aerosol inhaler Shortness Of Breath amlodipine 5 mg tablet 5 mg PO DAILY 02/17/22 04/24/22 clopidogrel 75 mg tablet 75 mg PO DAILY 02/17/22 04/24/22 fluticasone 250 mcg-salmeterol 50 1 inh inhalation BID 02/17/22 04/24/22 mcg/dose blistr powdr for inhalation (Raffaele Inhub) levothyroxine 175 mcg capsule 175 mcg PO DAILY 02/17/22 04/24/22 lisinopril 40 mg tablet 40 mg PO DAILY 02/17/22 04/24/22 furosemide 20 mg tablet 20 mg PO DAILY PRN edema 04/24/22 04/24/22 Allergies Allergy/AdvReac Type Severity Reaction Status Date / Time Iodinated Contrast Media Allergy Unknown Rash Verified 05/25/22 17:35 iodine Allergy Unknown Rash Verified 05/25/22 17:35 Penicillins Allergy Unknown Rash Verified 05/25/22 17:35 shellfish derived Allergy Rash Verified 05/25/22 17:35 Review of Systems Review of Systems: CONSTITUTIONAL: Denies fever, chills, or sweats. EYES: Denies visual changes. CARDIOVASCULAR: Denies chest pain. RESPIRATORY: Denies dyspnea. GASTROINTESTINAL: Denies abdominal pain, nausea, vomiting. MUSCULOSKELETAL: See HPI. NEUROLOGIC: See HPI. All systems reviewed & are unremarkable except as noted in HPI and below PMFSH Past Medical History Medical History Anemia Anxiety Arthritis Atherosclerotic heart disease of [place] coronary artery with other forms of angina pectoris CAD (coronary artery disease) Cataract Cerebrovascular disease Community acquired pneumonia COPD (chronic obstructive pulmonary disease) Depression Diabetes Diverticulitis Enlarged prostate without lower urinary tract symptoms (luts) Gastro-esophageal reflux disease without esophagitis HTN (hypertension) Hyperlipidemia Hypothyroidism Left carotid artery occlusion Lumbar radiculopathy Non-small cell cancer of right lung Non-ST elevation (NSTEMI) myocardial infarction Other vitamin B12 deficiency anemias PVD (peripheral vascular disease) Sciatica Sepsis Sleep apnea Spinal stenosis Testosterone deficiency Surgical History Surgical History H/O carotid endarterectomy History of bowel resection History of cardiac cath Hx laparoscopic cholecystectomy Family History Family History Father Family history of malignant neoplasm Family history of lung cancer Patient's father is Mother Hypertension Diabetes mellitus Family history o
== END 2022-05-25 23:20 | disposition home or self-care (01) ==
PROVIDERS: Emergency Provider Physician Assistant; PCP Nurse Practitioner Family
DX: S43.401A Unspecified sprain of right shoulder joint, initial encounter (principal); S60.221A Contusion of right hand, initial encounter; W10.1XXA Fall (on)(from) sidewalk curb, initial encounter; I25.10 Atherosclerotic heart disease of native coronary artery without angina pectoris; J44.9 Chronic obstructive pulmonary disease, unspecified; I10 Essential (primary) hypertension; E78.5 Hyperlipidemia, unspecified; E03.9 Hypothyroidism, unspecified; D64.9 Anemia, unspecified; F41.9 Anxiety disorder, unspecified; F32.A Depression, unspecified; I25.2 Old myocardial infarction; E11.51 Type 2 diabetes mellitus with diabetic peripheral angiopathy without gangrene; N40.0 Benign prostatic hyperplasia without lower urinary tract symptoms; G47.30 Sleep apnea, unspecified; K21.9 Gastro-esophageal reflux disease without esophagitis; Z79.51 Long term (current) use of inhaled steroids; Z79.02 Long term (current) use of antithrombotics/antiplatelets; Z87.891 Personal history of nicotine dependence
CPT/HCPCS: 70450; 73030; 73130; 99284; A4565